=== PATIENT | male | born 1995 | race Caucasian/White ===

== ENCOUNTER → 2019-09-26 13:37 | Outpatient (CLI) | payer BC, SELFPAY ==
--- NOTE | ~2019-09-26 | CT_ITS ---
EXAMINATION: CT abdomen pelvis w con DATE: 09/26/2019 14:10 INDICATION: Right upper quadrant abdominal pain TECHNIQUE: Computed tomography (CT) of the abdomen and pelvis was performed with 100 cc Omnipaque 350 intravenous contrast. Automated exposure control and iterative reconstruction technique were employe d. Exam dose: 655.81 mGy-cm total exam DLP. COMPARISON: None. FINDINGS: There is a calcified pulmonary granuloma in the posterior basilar right lower lobe. No infi ltrate or consolidation at the lung bases. Heart size is within normal range. No pericardial or pleural effusion. There is an indeterminate hypoenhancing 3 mm lesion of the anterior aspect of the medial segment left hepatic lobe (series 2 image 25). There is an indeterminate approximately 7.5 mm hypoenhancing lesion of the right hepatic lobe (series 2 image 31). The liver, gallbladder, bile ducts, pancreas, pancreatic duct and spleen are otherwise unremarkable. Normal morphology of the adrenal glands. No renal mass lesion. No urinary tract calculus or hydroureteronephrosis. The urinary bladder is unre markable. Normal prostate gland and seminal vesicles. Normal caliber of the abdominal aorta. No intraperitoneal or retroperitoneal or pelvic mass lesion or adenopathy or ascites. Small fat-containing umbilical hernia. IMPRESSION: Indeterminate 3 mm and 7.5 mm hypoenhancing lesions of the liver most likely benign Reviewed, dictated and finalized at [facility]. Reviewed, dictated and finalized at [facility]. IMPRESSION: Indeterminate 3 mm and 7.5 mm hypoenhancing lesions of the liver m ost likely benign
== END ==
PROVIDERS: PCP Family Medicine; Visit Provider Surgery
DX: K82.8 Other specified diseases of gallbladder (principal); K76.9 Liver disease, unspecified
CPT/HCPCS: 74177; Q9967

== ENCOUNTER 2019-10-08 03:06 | Outpatient (CLI) | payer BC, SELFPAY ==
[2019-10-09 14:41] LABS: SARS-CoV-2 RNA PCR Negative
== END 2019-10-08 03:07 | disposition home or self-care (01) ==
LOC: ANHCOVIDDT 03:07
PROVIDERS: PCP Family Medicine; Visit Provider Surgery
DX: Z01.818 Encounter for other preprocedural examination (principal); Z11.59 Encounter for screening for other viral diseases
CPT/HCPCS: 87635; C9803; U0003

== ENCOUNTER 2019-10-10 02:18 | Day surgery (SDC) | payer BC, SELFPAY ==
[2019-10-04 09:52] VITALS: BMI 26.6
--- NOTE | 2019-10-10 11:01 | WPDANESEPPF ---
Anes - Initial Pre Proc Eval Procedure: Operation Date: 10/10/19 13:00 Proposed Procedures p Esophagogastroduodenoscopy, Possible Biopsy - Eb Rodriguez MD Date/Time: 10/10/19 11:01 Surgeon: Eb Rodriguez MD Pre Op Diagnosis: RUQ abdominal pain Patient Data Age: 24 Gender: M Height: 5 ft 9 in Weight: 82 kg Allergies Allergy/AdvReac Type Severity Reaction Status Date / Time No Known Allergies Allergy Verified 10/10/19 11:54 Home Medications Medication Instructions Recorded Confirmed Type No Home Medications 10/04/19 10/10/19 History Patient hx anesthesia problems: none Family hx anesthesia problems: none PMFSH Past Medical History Medical History (Updated 10/10/19 @ 12:37 by Xavier Russell MD) GERD (gastroesophageal reflux disease) Surgical History Surgical History History of tonsillectomy and adenoidectomy Family History Family History (Updated 09/23/19 @ 09:54 by Bella Baires) Grandparent Breast cancer Father Hypertension Other Family history of malignant neoplasm of breast Social History Social History (Updated 09/23/19 @ 09:54 by Bella Baires) Smoking status: Never smoker Alcohol intake: current Drinks per week: 2 Substance use: never Anes - Eval Final PreProcedure Day of Procedure 10/10/19 11:01 Patient weight: normal Heart: regular rate and rhythm Lungs: clear to auscultation Airway: Mallampati scale class II Neurological: alert and oriented Last oral intake: >/= 8 hours ASA classification: II Emergent: no Anesthetic plan: proceed Anesthesia type and monitoring: general GIVS and standard monitoring Informed Consent: The patient's anesthetic plan and its attendant risks and benefits were discussed with the patient/family/POA. Questions were solicited and answers provided to the satisfaction of the patient/family/POA.
[2019-10-10 12:06] VITALS: BP 125/89; PULSE 65; RESP 16; TEMP 37.2; O2SAT 100
[2019-10-10] MEDS: LACTATED RINGERS 1,000 ML 150 ML IV CONT (12:19)
--- NOTE | 2019-10-10 13:14 | WPDHPUPDATE1 ---
History and Physical Update Update Date/Time: 10/10/19 13:14 History and Physical has been reviewed, including an updated exam of the patient. There are NO changes in the patient's condition. Risks, benefits, and alternatives have been discussed and questions answered. Patient agrees to proceed with procedure.
[2019-10-10] MEDS: BENZOCAINE (*SP) 60 ML SPRAY CAN (HURRICAINE) 1 SPRAY MUCOUS MEM (13:17)
[2019-10-10 13:32] VITALS: BP 97/61; PULSE 69; RESP 17; O2SAT 98
[2019-10-10 13:42] VITALS: BP 97/64; PULSE 66; RESP 18; O2SAT 100
[2019-10-10 13:52] VITALS: BP 130/97; PULSE 60; RESP 20; O2SAT 98
== END 2019-10-10 14:12 | disposition home or self-care (01) ==
PROVIDERS: PCP Family Medicine; Visit Provider Surgery
PROC: 0DJ08ZZ Inspection of Upper Intestinal Tract, Via Natural or Artificial Opening Endoscopic (ICD-10-PCS; CPT 43235; principal; 2019-10-10 13:00)
DX: K29.30 Chronic superficial gastritis without bleeding (principal); K29.80 Duodenitis without bleeding
CPT/HCPCS: 43239; 87081; 88305; J2704; J7120